=== PATIENT | female | born 1985 | race Caucasian/White ===

== ENCOUNTER 2017-07-18 20:45 | Emergency (ER) | payer MEDICAID ==
[2017-07-18] MEDS ORDERED: LET GEL TOPICAL 1 EA SYR TP ONE ×2 (21:02→21:05)
--- NOTE | 2017-07-18 21:02 | EDPHY ---
H & P Time Seen by Provider: 07/18/17 20:56 HPI/ROS: CHIEF COMPLAINT: Finger laceration History by patient HISTORY OF PRESENT ILLNESS: 31-year-old otherwise healthy woman presents with laceration of her right index finger that occurred while wash in knife at home. She denies any distal numbness or tingling. He was initially bleeding and she could get it to stop. She says her tetanus immunization was up-to-date as of 2012 but she is not sure when her last tetanus shot was. REVIEW OF SYSTEMS: As in HPI, and all other systems reviewed and are negative Smoking Status: Never smoked Physical Exam: General Appearance: Alert and no distress. Eyes: Pupils equal and round no injection. Musculoskeletal: Neck is supple and nontender. Extremities: Right index finger with U shaped 2 cm laceration at base of the index finger of the dorsum. Patient has full extension against resistance at the PIP, PIP and MCP joint. Distal cap refill is less than 2 seconds, distal sensations intact. Skin: No rashes or lesions except as described above. Constitutional: Initial Vital Signs Temperature (C) 36.7 C 07/18/17 20:52 Heart Rate 73 07/18/17 20:52 Respiratory Rate 16 07/18/17 20:52 Blood Pressure 112/66 07/18/17 20:52 O2 Sat (%) 97 07/18/17 20:52 O2 Delivery Mode Room Air Allergies/Adverse Reactions: amoxicillin [From Augmentin] Allergy (Verified 07/18/17 20:55) clavulanic acid [From Augmentin] Allergy (Verified 07/18/17 20:55) Home Medications: Medication Instructions Recorded NK [No Known Home Meds] 07/18/17 MDM/Departure - MDM Medications Given: Discontinued Medications Tetracaine/Epinephrine/Lidocaine (Let Gel Topical) 1 ea TP EDNOW ONE Stop: 07/18/17 21:06 Last Admin: 07/18/17 21:07 Dose: 1 ea ED Course/Re-evaluation: 31-year-old woman presents with laceration to right index finger while washing a knife by hand. Let was applied to the wound was irrigated. The wound was superficial and only the middle few mm were through the dermis and did not require suturing. There is no evidence foreign body and no evidence of neurologic or functional impairment. We discussed signs of sepsis of infection return precautions the patient was discharged home in stable condition. 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 - Depart Disposition: Home, Routine, Self-Care Clinical Impression: Laceration of right index finger Qualifiers: Encounter type: initial encounter Damage to nail status: without damage Foreign body presence: without foreign body Qualified Code(s): S61.210A - Laceration without foreign body of right index finger without damage to nail, initial encounter Condition: Good Instructions: Laceration (ED) Additional Instructions: You were seen by Dr. Diamond Long today. Keep the wound covered with antibiotic ointment or Aquaphor and a bandage. Watch for signs and symptoms of infection including redness, pus draining, swelling or increased pain. Return for any worsening or new concerns. Referrals: NONE *PRIMARY CARE P,. [Primary Care Provider] - As per Instructions
[2017-07-18 21:52] VITALS: BP 110/66; PULSE 85; RESP 18; TEMP 98.4; O2SAT 96
== END 2017-07-18 21:30 | disposition home or self-care (01) ==
LOC: CED 20:45
DX: S61.210A Laceration without foreign body of right index finger without damage to nail, initial encounter (principal); W26.0XXA Contact with knife, initial encounter; Y92.009 Unspecified place in unspecified non-institutional (private) residence as the place of occurrence of the external cause